=== PATIENT | male | born 1980 | race Caucasian/White ===

== ENCOUNTER 2020-09-19 13:19 | Emergency (ER) | payer SELFPAY ==
[~2020-09-19] VITALS: Ht 172.7 cm; Wt 65.9 kg
--- NOTE | 2020-09-19 15:13 | RAD ---
EXAMINATION: XR HAND_RIGHT 3 VIEWS CLINICAL HISTORY: Right middle finger injury TECHNIQUE: XR HAND_RIGHT 3 VIEWS Number of Images/Views: 3 COMPARISON: None FINDINGS: Near complete dorsoulnar dislocation of the third distal phalanx at the DIP joint. Joint spaces and a lignment otherwise maintained. No acute fracture. Mild soft tissue swelling in the long finger. IMPRESSION: Dislocated third distal phalanx without definitively visualized acute fracture. Electronically signed by: Garland Patterson DO (09/19/2020 3:11 PM) EILEEN
[2020-09-19 15:15] VITALS: BP 117/88
[2020-09-19] MEDS ORDERED: oxyCODONE/APAP 5/325 1 TAB TABLET PO ONE (16:30)
--- NOTE | 2020-09-19 17:01 | RAD ---
Site ID: [id number] EXAMINATION: XR FINGER(S)_RIGHT 2+VIEWS. HISTORY: 39 years Male Reason: post reduction of dislocation in the right middle finger COMPARISON: 1 hour earlier. FINDINGS: After reduction of dislocation in the DIP joint of the right middle finger, there is normal alignment seen. No fracture or dislocation. No subluxation or radiopaque foreign body. IMPRESSION: Successful reduction of the right DIP dislocation in good alignment. Electronically signed by: Ruiz Sanders MD (09/19/2020 4:59 PM) [id number]
--- NOTE | 2020-09-19 17:13 | ED.ADGEN ---
Past Medical History Past Medical History: No Pertinent History Past Surgical History: Other Additional Past Surgical Histo: HERNIA Smoking Status: Current Every Day Smoker Alcohol Use: Rarely General Adult EDM: Chief Complaint: FINGER INJURY HPI: HPI: Patient is a 9-year-old male who presents to the emergency room complaining of pain to his middle finger. Patient states that he and his were goofing around and playing tag. He had to tag her and hit his finger on a wall. He has had severe pain since then. He states it feels like sharp throbbing pain. He is able to move all his other fingers but cannot fully bend his distal joint. He denies any other injuries. Review of Systems: Review of Systems: Complete ROS is negative unless otherwise documented in HPI Current Medications: Current Medications Medications (Trade) Dose Ordered Sig/Justice Start Time Stop Time Status Last Admin Dose Admin Oxycodone/ Acetaminophen (Percocet 5/325) 2 tab 1X ONCE 09/19/20 16:30 09/19/20 16:36 DC 09/19/20 16:33 2 TAB Allergies: Allergies: Allergies Coded Allergies Type Severity Reaction Last Updated Verified No Known Drug Allergies 09/19/20 No Physical Exam: PE: General: Awake, alert, NAD. Well Nourished, well hydrated. Cooperative HEENT: Atraumatic, EOMI, PERRL, airway patent, moist oral mucosa Neck: Supple, trachea midline Respiratory: CTA bilaterally, normal effort, no wheezing/crackles CV: RRR, no murmur, cap refill <2 GI: Soft, nondistended, nontender, no masses MSK: Hand: Third DIP has dislocation upon palpation with surrounding swelling and tenderness, intact sensation, cap refill less than 2 Skin: Warm, dry, intact Neuro: A&O x3, speech NL, sensory and motor grossly intact, no focal deficits Psych: Normal affect, normal mood, not suicidal or homicidal Current Patient Data: Vital Signs: Vital Signs Date Time Temp Pulse Resp B/P (MAP) Pulse Ox O2 Delivery O2 Flow Rate FiO2 09/19/20 15:15 98.1 71 16 117/88 (98) 99 Room Air 98.1 EKG: EKG: [] Heart Score: C/O Chest Pain: N/A Risk Factors: Risk Factors: DM, Current or recent (<one month) smoker, HTN, HLP, family history of CAD, obesity. Risk Scores: Score 0 - 3: 2.5% MACE over next 6 weeks - Discharge Home Score 4 - 6: 20.3% MACE over next 6 weeks - Admit for Clinical Observation Score 7 - 10: 72.7% MACE over next 6 weeks - Early Invasive Strategies Radiology/Procedures: Radiology/Procedures: [] Course & Med Decision Making: Course & Med Decision Making Pertinent Labs and Imaging studies reviewed. (See chart for details) Patient is a 39-year-old male who presents to the emergency room with a third finger DIP dislocation. Dislocation was reduced in the emergency room. Patient tolerated procedure well with some pain. Patient was given Percocet for pain. He was placed in an aluminum splint. Repeat x-ray shows reduction. Patient keller s full range of movement post reduction. Patient's test results and vitals while in the ED were fully reviewed and discussed with the patient. Patient is stable and at this time does not need admission to the hospital. We have discussed strict return precautions and the importance of following up with their Primary Care Physician. Patient stated understanding and was given an oppo rtunity to ask any questions. Patient is in agreement with plan. Dragon Disclaimer: [facility] Disclaimer: This electronic medical record was generated, in whole or in part, using a voice recognition dictation system. PROCEDURE Procedure Orthopedic Reduction (Digit) Performed by: Sis Cohen MD Consent: Verbal consent obtained; risks, benefits and alternatives were discussed Consent given by: patient and/or guardian Patient understanding: patient/guardian states understanding of the procedure being performed Patient consent: the patient/guardian's understanding of the procedure matches consent given Patient identity confirmed: verbally with patient and arm band Time out: Immediately prior to procedure a "time out" was called to verify the correct patient, procedure, equipment, operations support representative and site/side marked as required. Location details: Third digit DIP Reduction Procedure: gentle hyperextension and axial pull Results: After procedure, digit was fully mobile Complication: Tolerated well without complication. <2sec STREET [employer]. Tendons intact. Departure Departure Impression: Primary Impression: Dislocation of distal interphalangeal joint of finger Disposition: HOME / SELF CARE / HOMELESS Condition: IMPROVED Referrals: NO PCP (PCP) Patient Instructions: Finger Dislocation SIS COHEN MD September 19, 2020 17:13
== END 2020-09-19 17:17 | disposition home or self-care (01) ==
LOC: ER 13:19
DX: S63.292A Dislocation of distal interphalangeal joint of right middle finger, initial encounter (principal); F17.200 Nicotine dependence, unspecified, uncomplicated; W22.01XA Walked into wall, initial encounter; Y93.89 Activity, other specified; Y92.89 Other specified places as the place of occurrence of the external cause; Y99.8 Other external cause status
CPT/HCPCS: 26770; 73130; 73140; 99284